=== PATIENT | male | born 1995 | race Caucasian/White ===

== ENCOUNTER 2016-07-15 14:00 | Emergency (ER) | payer SELFPAY ==
[2016-07-15] MEDS ORDERED: TORADOL 30 MG VIAL IVP ONE (14:22)
[2016-07-15] MEDS ORDERED: ZOFRAN INJ 4 MG VIAL IVP ONE (14:22)
[2016-07-15] MEDS ORDERED: ZOFRAN INJ 4 MG VIAL ONE (14:23)
--- NOTE | 2016-07-15 14:23 | DR.ABDMALE ---
HPI - Time seen Time seen: 14:20 - PCP Primary Care Physician: WANG - HPI comment HPI Comment: GETTING WORSE. POSITIVE NAUSEA. - Complaint Chief Complaint Doctors Comments: LEFT FLANK AND LOWER CHEST PAIN WITH NAUSEA TIMES Chief Complaint:: PT. C/O LEFT SIDED PAIN, NEAR RIBS, & FEELING LIKE HE IS SHORT OF BREATH. - Reviewed Nurses Notes Review: Yes - Mode of arrival Mode of Arrival: EMS - Timing Onset of Chief Complaint: 07/15/16 Came on: Suddenly - Duration Duration: Constant Duration: Hours - Location Location: LUQ (LEFT FLANK.) - Severity Severity: Moderate - Quality Quality: Cramping, Sharp - Context Onset: Suddenly History of: None - Modifying factors Worsening Factors: Nothing Improving Factors: Antacids - Associated signs and symptoms Associated Signs and Symptoms: Nausea. denies: Vomiting, Diarrhea, Constipation , Dysuria PMH - PMH Past Medical History: No Past Surgical History: No Surgical History: No History - Family History History of Family Medical Conditions: Yes Family Medical History: Diabetes Mellitus, Coronary Artery Disease, Heart Failure, Hypertension - Social History Does patient currently use any type of tobacco product: No Have you used tobacco products in the last 12 months: No Type of Tobacco Use: None Does any household member use tobacco: No Alcohol Use: None Do you use any recreational Drugs:: No Lives With: Family Lives Where: Home - infectious screening In the last 2 months have you had wt loss of >10#?: NO Have you had fever, night sweats or hemotysis?: No Have you traveled outside the country in the last 6 months?: No Isolation: Standard ROS - Review of Systems Constitutional: No Symptoms Reported Eyes: No Symptoms Reported ENTM: No Symptoms Reported Respiratoy: Short of Breath Genitourinary: No Symptoms Reported. negative: Dysuria, Frequency, Hematuria Neurological: No Symptoms Reported Integumentary: No Symptoms Reported Hematologic/Lymphatic: No Symptoms Reported Endocrine: No Symptoms Reported All Other Systems: Reviewed and Negative PE - Vital Signs Vital Signs: Temp Pulse Resp BP Pulse Ox 07/15/16 14:15 98.7 F 84 18 133/76 100 04/25/14 20:16 137/87 - General Limitations: No Limitations General Appearance: Alert - Head Head Exam: Normal Inspection - Eyes Eye exam: Normal Appearance - ENT ENT Exam: Normal External Ear Exam - Neck Neck Exam: Normal Inspection - Chest Chest Inspection: Symmetric Chest Wall Rise - Respiratory Respiratory Exam: Normal Lung Sounds Bilat Respiratory Exam: Bilateral Clear to Auscultation - Cardiovascular Cardiovascular Exam: Regular Rate, Normal Rhythm, Normal Heart Sounds - Abdominal Exam Abdominal Exam: Normal Bowel Sounds, Soft. negative: Tenderness - Rectal Rectal Exam: Deferred - Back Back Exam: Normal Inspection - Extremeties Extremities Exam: Normal Inspection - Exam: Male: Deferred - Neurologic Neurological Exam: Alert, Oriented X3 - Psychiatric Psychiatric Exam: Normal Affect, Normal Mood - Skin Skin Exam: Normal Color MDM - Differential Diagnosis Differential Diagnosis: Bowel Obstruction, Gastritus/PUD, Urinary tract infection, Urolithiasis Course - Treatment Treatment: IM MED FOR PAIN, IMPROVE PAIN - Reevaluation 1st: Improved - Education/Counseling Education/Counseling: Patient, Family, Education Educated On: Diagnosis, Needs for Follow Up ROR - Labs Reviewed Laboratory Results Reviewed?: Yes Result Diagrams: 07/15/16 14:30 07/15/16 14:30 Laboratory: WBC 6.0 X10^3/uL (3.6-10.0) 07/15/16 14:30 RBC 5.33 X10^6/uL (4.7-6.0) 07/15/16 14:30 Hgb 16.0 g/dL (13.5-18.0) 07/15/16 14:30 Hct 47.2 % (42.0-54.0) 07/15/16 14:30 MCV 88.5 fL (80.0-100.0) 07/15/16 14:30 MCH 30.1 pg (27.0-34.0) 07/15/16 14:30 MCHC 34.0 g/dL (33.0-35.0) 07/15/16 14:30 RDW 13.5 % (11.6-16.5) 07/15/16 14:30 Plt Count 298 X10^3/uL (150.0-450.0) 07/15/16 14:30 MPV 7.8 fL (7.4-11.0) 07/15/16 14:30 Neut % 55.6 % (42.0-75.0) 07/15/16 14:30 Lymph % 34.9 % (21.0-51.0) 07/15/16 14:30 Stokes % 6.5 % (0.0-13.0) 07/15/16 14:30 Eos % 2.4 % (0.9-2.9) 07/15/16 14:30 Baso % 0.6 % (0.2-1.0) 07/15/16 14:30 Neut # 3.4 x10^3/uL (2.2-4.8) 07/15/16 14:30 Lymph # 2.1 X10^3/uL (1.3-2.9) 07/15/16 14:30 Stokes # 0.4 x10^3/uL (0.3-0.8) 07/15/16 14:30 Eos # 0.1 x10^3/uL (0.0-0.2) 07/15/16 14:30 Baso # 0.0 X10^3/uL (0.0-0.1) 07/15/16 14:30 Absolute Nucleated RBC 0.1 /100WBC 07/15/16 14:30 Sodium 139 mmol/L (136-145) 07/15/16 14:30 Corrected Sodium TNP 07/15/16 14:30 Potassium 4.2 mmol/L (3.5-5.1) 07/15/16 14:30 Chloride 102 mmol/L (98-107) 07/15/16 14:30 Carbon Dioxide 29.9 mmol/L (21-32) 07/15/16 14:30 BUN 14 mg/dL (7-18) 07/15/16 14:30 Creatinine 1.28 mg/dL (0.70-1.30) 07/15/16 14:30 Est GFR (MDRD) Af Amer > 60 (>60) 07/15/16 14:30 Est GFR (MDRD) Non-Af > 60 (>60) 07/15/16 14:30 Glucose 90 mg/dL (65-99) 07/15/16 14:30 Calcium 9.1 mg/dL (8.5-10.1) 07/15/16 14:30 Corrected Calcium TNP 07/15/16 14:30 Total Bilirubin 0.60 mg/dL (0.2-1.0) 07/15/16 14:30 AST 43 Units/L (15-37) H 07/15/16 14:30 ALT 91 Units/L (12-78) H 07/15/16 14:30 Alkaline Phosphatase 107 Units/L (75-270) 07/15/16 14:30 Total Protein 8.2 g/dL (6.4-8.2) 07/15/16 14:30 Albumin 4.2 g/dL (3.4-5.0) 07/15/16 14:30 Globulin 4.0 g/dL (2.5-4.5) 07/15/16 14:30 Albumin/Globulin Ratio 1.1 Ratio (1.1-2.1) 07/15/16 14:30 Amylase 76 Units/L (25-115) 07/15/16 14:30 Lipase 93 Units/L (73-393) 07/15/16 14:30 Specimen Type Clean catch urine 07/15/16 14:30 Urine Color Yellow (YELLOW) 07/15/16 14:30 Urine Appearance Clear (CLEAR) 07/15/16 14:30 Urine pH 7.0 (5.0 - 8.0) 07/15/16 14:30 Ur Specific [place] 1.010 (1.000-1.030) 07/15/16 14:30 Urine Protein Negative (NEGATIVE) 07/15/16 14:30 Urine Glucose (UA) Negative (NEGATIVE) 07/15/16 14:30 Urine Ketones Negative (NEGATIVE) 07/15/16 14:30 Urine Occult Blood Negative (NEGATIVE) 07/15/16 14:30 Urine Nitrite Negative (NEGATIVE) 07/15/16 14:30 Urine Bilirubin Negative (NEGATIVE) 07/15/16 14:30 Urine Urobilinogen Normal (NORMAL) 07/15/16 14:30 Ur Leukocyte Esterase Negative (NEGATIVE) 07/15/16 14:30 Urine RBC None seen /HPF (NEGATIVE) 07/15/16 14:30 Urine WBC None seen /HPF (NEGATIVE) 07/15/16 14:30 Ur Squamous Epith Cells Rare /HPF (NEGATIVE) 07/15/16 14:30 Urine Bacteria Trace /HPF (NEGATIVE) 07/15/16 14:30 Ur Culture Indicated? No/not indicated 07/15/16 14:30 H. pylori IgG Antibody Negative (NEGATIVE) 07/15/16 14:30 - XRAY XRAY Interpreted by: Radiologist XRAY Findings: REPORT DISCUSS WITH PATIENT - Diagnosis Discharge Problem: Left flank pain Abdominal pain Qualifiers: Abdominal location: upper abdomen, unspecified Qualified Code(s): R10.10 - Upper abdominal pain, unspecified - Discharge Plan Disposition: 01 HOME, SELF-CARE Condition: Stable - Follow ups/Referrals Follow ups/Referrals: [facility],None [Primary Care Provider] - 3 days YOAV ZEPEDA [STAFF PHYSICIAN] - 3 days - Instructions Instructions: Abdominal Pain, Adult, [id number], Flank Pain, [id number] Additional Instructions: RETURN TO ED IF WORSE.
[2016-07-15] MEDS ORDERED: TORADOL 30 MG VIAL ONE (14:24)
[2016-07-15 14:26] VITALS: BP 133/76; BMI 31.1
[2016-07-15 14:39] LABS: BASOPHILS % (AUTO) 0.6 % (0.2-1.0); EOSINOPHILS # (AUTO) 0.1 x10^3/uL (0.0-0.2); EOSINOPHILS % (AUTO) 2.4 % (0.9-2.9); HEMATOCRIT 47.2 % (42.0-54.0); LYMPHOCYTES # (AUTO) 2.1 X10^3/uL (1.3-2.9); LYMPHOCYTES % (AUTO) 34.9 % (21.0-51.0); MEAN CORPUSCULAR HEMOGLOBIN 30.1 pg (27.0-34.0); MEAN CORPUSCULAR VOLUME 88.5 fL (80.0-100.0); MEAN PLATELET VOLUME 7.8 fL (7.4-11.0); MONOCYTES # (AUTO) 0.4 x10^3/uL (0.3-0.8); MONOCYTES % (AUTO) 6.5 % (0.0-13.0); NEUTROPHILS # (AUTO) 3.4 x10^3/uL (2.2-4.8); NEUTROPHILS % (AUTO) 55.6 % (42.0-75.0); PLATELET COUNT 298 X10^3/uL (150.0-450.0); RED BLOOD COUNT 5.33 X10^6/uL (4.7-6.0); RED CELL DISTRIBUTION WIDTH 13.5 % (11.6-16.5)
[2016-07-15 14:40] LABS: BILIRUBIN,URINE NEGATIVE (NEGATIVE); BLOOD/HEMOGLOBIN,URINE NEGATIVE (NEGATIVE); GLUCOSE, URINE NEGATIVE (NEGATIVE); KETONES,URINE NEGATIVE (NEGATIVE); LEUKOCYTE ESTERASE ,URINE NEGATIVE (NEGATIVE); NITRITES,URINE NEGATIVE (NEGATIVE); PROTEIN,URINE NEGATIVE (NEGATIVE); UROBILINOGEN,URINE NORMAL (NORMAL)
[2016-07-15 14:54] LABS: ALANINE AMINOTRANSFERASE 91 Units/L (12-78); ALBUMIN 4.2 g/dL (3.4-5.0); ALKALINE PHOSPHATASE 107 Units/L (75-270); AMYLASE 76 Units/L (25-115); ASPARTATE AMINO TRANSFERASE 43 Units/L (15-37); BLOOD UREA NITROGEN 14 mg/dL (7-18); CALCIUM 9.1 mg/dL (8.5-10.1); CARBON DIOXIDE 29.9 mmol/L (21-32); CHLORIDE 102 mmol/L (98-107); CREATININE 1.28 mg/dL (0.70-1.30); GLUCOSE 90 mg/dL (65-99); LIPASE 93 Units/L (73-393); SODIUM 139 mmol/L (136-145); TOTAL PROTEIN 8.2 g/dL (6.4-8.2); eGFR BLACK RACES > 60 (>60); eGFR NON BLACK RACES > 60 (>60)
[2016-07-15 14:59] LABS: APPEARANCE,URINE CLEAR (CLEAR); BACTERIA,URINE TRACE /HPF (NEGATIVE); COLOR,URINE YELLOW (YELLOW); RBC,URINE NONE SEEN /HPF (NEGATIVE); SQUAMOUS EPITHELIAL CELL,UR RARE /HPF (NEGATIVE)
--- NOTE | 2016-07-15 15:04 | CT ---
HISTORY: Left-sided flank pain. Study: CT abdomen and pelvis without contrast. Dose reduction techniques including Automated Exposur e Control (AEC) and adjustment of mA and kV were utilized. Comparison: None. Technique: Multiple axial images of the abdomen and pelvis were obtained from the lung bases to the pubic symphysis without the administration of IV contrast. Findings: The included portions of the lung bases are clear. The liver, gallbladder, pancreas, splee n, adrenal glands and kidneys are unremarkable their noncontrast CT appearance. There are no calcifi ed stones along the course of either ureter or within the lumen of the incompletely distended urinar y bladder. There are a couple of pelvic phleboliths on the left. The appendix is normal. The colon i s grossly unremarkable without evidence of diverticulosis. There is no small bowel dilatation. There is no significant mesenteric stranding or lymphadenopathy. There is no intraperitoneal free air or free fluid. The bony structures are grossly intact. IMPRESSION: Negative CT of the abdomen and pelvis without IV contrast. Reported By:
== END 2016-07-15 15:46 | disposition home or self-care (01) ==
LOC: ER 14:01
DX: R10.12 Left upper quadrant pain (principal)
CPT/HCPCS: 36415; 74176; 80053; 81001; 82150; 83690; 85025; 86677; 96365; 96374; 96375; 99283; J1885; J2405